=== PATIENT | female | born 1990 | race Two or more races ===

== ENCOUNTER 2024-12-25 10:22 | Outpatient (AMB) | payer MEDICAID, SELFPAY ==
--- NOTE | 2024-12-25 10:36 | AMB.OBINITIA ---
Vital Signs 12/25/24 10:37 Weight 101.264 kg Weight Measurement Method Standing Scale BP 114/72 Blood Pressure Source Automatic Cuff Blood Pressure Location Left Upper Arm Position Sitting Respiration 18 Pulse 90 Pulse Source Monitor Temp 97.2 F Temp Source Oral Pulse Oximetry (%) 98 Oxygen Delivery Method Room Air Allergies/Home Meds Allergies & Medications Allergies No Known Allergies Allergy (Verified 12/25/24 10:39) Medication Reconciliation No Known Home Medications 12/25/24 [History Confirmed 12/25/24] Intake Visit Data Collection New Patient or Established: New Patient (never been to [facility]) Reason for Visit:: OBI TRANSFER Seen by Clinical Staff ONLY (RN/MA): No Chemistry Quality Control Analyst Required: No Do You Feel Safe at Home: Yes Authorities Contacted: N/A PCP or OBGYN visit in last 3 months: Yes Hx Now: Yes Are you currently on any form of Control: No Last menstrual period: 05/17/24 Pain Present Currently: No Pain Scale Used: Gonsalves-Betancourt/Numerical Pain scale:: 0 Smoking Status Smoking Status: Never smoker Questionnaires Covid-19 Vaccine Questionnaire Has patient been vacinated for Covid-19 Have you been vacinated for Covid-19: Yes PHQ-9 PHQ-2 Over the last 2 weeks, how often have you been bothered by any of the following problems? 1. Little interest or pleasure in doing things: not at all 2. Feeling down, depressed, or hopeless: not at all Total score: 0 PHQ-9 3. Trouble falling or staying asleep, or sleeping too much: Not at all 4. Feeling tired or having little energy: Not at all 5. Poor appetite or overeating: Not at all 6. Feeling bad about yourself - or that you are a failure or have let yourself or your family down: Not at all 7. Trouble concentrating on things, such as reading the newspaper or watching television: Not at all 8. Moving or speaking so slowly that other people could have noticed? - Or the opposite - being so fidgety or restless that you have been moving around a lot more than usual: not at all 9. Thoughts that you would be better off or of hurting yourself in some way: Not at all Total score: 0 If you checked off any problems, how difficult have these problems made it for you to do your work, take care of things at home, or get along with other people?: not difficult at all Source: Developed by Drs. Mark Mcgee, Lora Reddy, Clyde Lopez and colleagues, with an educational rosa from [employer]. Depression screen completed yes Social History Living Situation History Marital Status: Single Lives With: Family Housing: House Tobacco History Smoking Status: Never smoker Second Hand Smoke Exposure: No Alcohol History Alcohol Intake: Never Domestic Abuse History Do You Feel Safe at Home: Yes History of Present Illness HPI Narrative 34-year-old 3 para 2 for OBI. Patient is a transfer from [facility]. Her labs. May 17, 2024. An estimated due date February 21, 2025. First ultrasound was 16 weeks August 30. And this made EDC 02/11/2025 patient also had a 26 growth ultrasound October 30 and this had an EDC of February 05, 2025 Dr Fowler has been going by the February 21, 2025 EDC. Patient's first visit was in the first trimester. She has a history of 2 C-sections. Patient has been managed for GDM with the . Her 1 hour was elevated and her 3-hour elevated also A1c has been 5.4. Patient is checking her sugars 4 times a day and is compliant with metformin and GDM diet. Patient is O+, antibody screen negative, RPR nonreactive, rubella immune, hepatitis B negative, hepatitis C negative, HIV negative, GC and Chlamydia were negative. And NIPT AFP and carrier screens all negative. Patient has a history of hep A. Reports movement. Denies contractions OB Initial Visit OB Flowsheet OB Flowsheet Initial Weight: Not Recorded Date <del>?</del> EGA Weight BP Alb Glu CTX Pres Fundal ht FHR Mov Dilation Station Effacement Hx Notes Visit Note 12/25/24 <del>?</del> 31w 5d 101.264 kg 114/72 absent unknown 32 146 active 34-year-old 3 para 2. x 2. GDM with this . Patient reports compliance with GDM diet and she is taking metformin 500 twice daily. I reviewed sugar log and patient's sugars are at goal 100%. Patient reports movement. Denies labor contractions. Denies leaking or bleeding. Tdap today. Increase fluids. Continue prenatals and iron. Increase fluids and walk twice a day reviewed labs and chart with patient today. Continue GDM diet. Continue to log blood sugars 4 times a day. Schedule patient with maternal- medicine for consult and scan. Tdap today. Increase fluids. Continue prenatals and iron. Increase fluids and walk twice a day reviewed labs and chart with patient today. Continue GDM diet. Continue to log blood sugars 4 times a day. Schedule patient with maternal- medicine for consult and scan. start week NST/BPP ordered Menstrual History Menstrual reliability: definite Flow: normal Menstrual regularity: regular Monthly: Yes Age at menarche: 12 On control pills at conception: No OB History : 3 Para: 2 Hx # Pregnancies: 0 Hx Total # of Abortions (Spontaneous & Elective): 0 # of Living Children: 2 Delivery History 1st : date: 03/23/14 sex: male Delivery type: History of depression before or after : No 2nd : date: 05/26/20 sex: male Delivery type: History of depression before or after : No Infection History & Risk Evaluation History of STDs: none HIV risk evaluation: low risk Hepatitis B risk evaluation: low risk Patient or partner has history of Genital Herpes: No Varicella/chicken pox status: immunized Genetic Screening & History Genetic Screening/Teratology Counseling - Includes patient, baby's father, or anyone in either family with: 1. Patient's age 35 years or older as of estimated date of delivery: Yes 2. Thalassemia (Marshallese, Cymraes, Mediterranean, or Background); MCV less than 80: No 3. Neural Tube Defect (Meningomyelocele, Spina Bifida, or Anencephaly): No 4. Congenital Heart Defect: No 5. Down Syndrome: No 6. Rishabh-Sachs (Ashkenazi Faith, Cajun, Italian [place]): No 7. Kervin Disease (Ashkenazi Faith): No 8. Familial Dysautonomia (Ashkenazi Faith): No 9. Sickle Cell Disease or Trait (): No 10. Hemophilia or other blood disorders: No 11. Muscular Dystrophy: No 12. Cystic Fibrosis: No 13. Scioto's Chorea: No 14. Mental Retardation/Autism: No 15. Other inherited genetic or chromosomal disorder: No 16. Maternal Metabolic Disorder (EG,TYPE 1 Diabetes, PKU): No 17. Patient or baby's father had a child with defects not listed above: No 18. Recurrent loss or a stillbirth: No 19. Medications (including supplements, vitamins, herbs or otc drugs)/illicit/recreational drugs/alcohol since last menstrual period: No 20. Any other: No Infection History 1. Live with someone with TB or exposed to TB: No 2. Rash or viral illness since last menstrual period: No 3. Hepatitis B,C: No Other (see comments) Source: [employer] Review of Systems Review of Systems Systems Reviewed: All systems reviewed, normal except as documented Exam General Limitations: no limitations General Appearance: alert, in no apparent distress, comfortable, cooperative, healthy appearing, well developed and well groomed Head Head exam: atraumatic, normocephalic and normal inspection Resp Respiratory exam: Present normal lung sounds bilaterally Card Cardiovascular exam: Present regular rate, normal rhythm and normal heart sounds Abdominal Abdominal exam: Present soft and normal bowel sounds Psych Psychiatric exam: Present normal affect and normal mood Office Procedures OB Clinic LOC & Office Proc's Nursing/Assessment Patient Status: Initial/New Patient OB Clinic Nursing Assessment: Medication Reconciliation, Update PMH in EMR and Vital Signs OB Clinic Coordination of Care: Education Complex Pt/Fam, Consent,records obtained, informed consent, Lab and Imaging orders and Staff clarify orders Special Needs: Heart tones New Patient Charge New Patient Point Assignment: [id number] New Patient Point Charge: CONSTRUCTION PROJECT ASSISTANT Level 3 ([id number]) Injection/Vaccine Admin Admin 1st Vaccine: Yes Immunizations diphth,pertus(acell),tetanus 2.5 Lf unit-8 mcg-5 Lf/0.5mL IM syringe Performing Provider: Lindy Muniz CNM Performing Location: [facility] Administered by: Brigid Clark MA on 12/25/24 11:17 Dose Route Admin Location Dispensed Lot Number Expiration Date [facility] [employer] 0.5 mL IM Left Deltoid 0.5 mL [id number] 03/12/27 97041-119-74 [employer] VIS Given Date VIS Provided VIS Publication Date 12/25/24 Single Vaccine 24 Eligibility Eligibility Date Funding Source Public Non-[facility] Assessment & Plan Diagnosis / Problem List (1) Encounter for supervision of high risk in third trimester, antepartum: Status: Acute (2) Diet controlled gestational diabetes mellitus (GDM), antepartum: Status: Acute (3) Advanced maternal age (AMA) in : Status: Acute (4) Previous delivery affecting , antepartum: Status: Acute Plan Continue GDM diet and glucose monitoring 4 times a day. Continue metformin 500 mg twice daily. Discussed labor precautions. Hydrate. Continue vitamin and iron. Schedule patient with maternal- medicine for anatomy scan. Follow-up with OB in 2 weeks for OB check, start weekly NST/BPP Additional Plan Follow Up: 2 Weeks (obc/GDM)
[2024-12-25 10:37] VITALS: BP 114/72; PULSE 90; RESP 18; TEMP 36.2; O2SAT 98
== END 2024-12-25 11:16 | disposition home or self-care (01) ==
LOC: HODSOBC 10:22
PROVIDERS: Supervising Provider Advanced Practice Midwife; Visit Provider Advanced Practice Midwife
DX: O09.523 Supervision of elderly multigravida, third trimester (principal); O09.293 Supervision of pregnancy with other poor reproductive or obstetric history, third trimester; O34.219 Maternal care for unspecified type scar from previous cesarean delivery; O09.893 Supervision of other high risk pregnancies, third trimester; O24.415 Gestational diabetes mellitus in pregnancy, controlled by oral hypoglycemic drugs; Z3A.31 31 weeks gestation of pregnancy; Z23 Encounter for immunization
CPT/HCPCS: 90471; 90715; 99203; G0463

== ENCOUNTER 2025-01-10 14:46 | Outpatient (AMB) | payer MEDICAID, SELFPAY ==
[2025-01-10 14:59] VITALS: BP 101/68; PULSE 87; RESP 17; TEMP 36.4; O2SAT 98
--- NOTE | 2025-01-10 14:59 | OBCLNT_ITS ---
Vital Signs 01/10/25 14:59 Weight 101.321 kg Weight Measurement Method Standing Scale BP 101/68 Blood Pressure Source Automatic Cuff Blood Pressure Location Right Upper Arm Position Sitting Respiration 17 Pulse 87 Pulse Source Monitor Temp 97.5 F Temp Source Temporal Artery Scan Pulse Oximetry (%) 98 Oxygen Delivery Method Room Air Allergies/Home Meds Allergies & Medications Allergies No Known Allergies Allergy (Verified 01/10/25 15:01) Intake Visit Data Collection New Patient or Established: Established Patient (seen at [facility] within 3 years) Reason for Visit:: OBC Seen by Clinical Staff ONLY (RN/MA): No Community Planning Technician Required: Yes Do You Feel Safe at Home: Yes Authorities Contacted: N/A PCP or OBGYN visit in last 3 months: Yes Date of Last PCP or OBGYN visit: 01/08/25 Hx Now: Yes Are you currently on any form of Control: No Pain Present Currently: No Pain Scale Used: Gonsalves-Betancourt/Numerical Pain scale:: 0 Smoking Status Smoking Status: Never smoker Questionnaires Covid-19 Vaccine Questionnaire Has patient been vacinated for Covid-19 Have you been vacinated for Covid-19: Yes PHQ-9 PHQ-2 Over the last 2 weeks, how often have you been bothered by any of the following problems? 1. Little interest or pleasure in doing things: not at all 2. Feeling down, depressed, or hopeless: not at all Total score: 0 PHQ-9 3. Trouble falling or staying asleep, or sleeping too much: Not at all 4. Feeling tired or having little energy: Not at all 5. Poor appetite or overeating: Not at all 6. Feeling bad about yourself - or that you are a failure or have let yourself or your family down: Not at all 7. Trouble concentrating on things, such as reading the newspaper or watching television: Not at all 8. Moving or speaking so slowly that other people could have noticed? - Or the opposite - being so fidgety or restless that you have been moving around a lot more than usual: not at all 9. Thoughts that you would be better off or of hurting yourself in some way: Not at all Total score: 0 If you checked off any problems, how difficult have these problems made it for you to do your work, take care of things at home, or get along with other people?: not difficult at all Source: Developed by Drs. Mark Mcgee, Lora Reddy, Clyde Lopez and colleagues, with an educational rosa from [employer]. Depression screen completed yes Social History Living Situation History Marital Status: Lives With: Family Housing: House Tobacco History Smoking Status: Never smoker Second Hand Smoke Exposure: No Alcohol History Alcohol Intake: Never Domestic Abuse History Do You Feel Safe at Home: Yes History of Present Illness HPI Narrative Giselle Diaz, , presents for routine visit at 35 weeks and 3 days gestation. Patient has a history of 2 previous sections. No contractions, LOF, VB and reports good FM. Denies SINCLAIR, VC, and epigastric pain. - Giselle Diaz is a 35-year-old presenting for routine visit at 35 weeks and 3 days gestation. - Estimated due date revised to February 11, 2025, based on ultrasound findings. - has been uncomplicated thus far. - Risk factors identified: - Advanced maternal age - History of 2 previous sections - Gestational diabetes - Patient is taking metformin 500mg BID for gestational diabetes management. - Blood sugar logs reviewed, numbers reported as pretty good and within control - Patient received Tdap vaccine at last visit. - No reported concerns or new symptoms during this visit. Review of Systems Review of Systems Systems Reviewed: All systems reviewed, normal except as documented Care OB Visit Log OB Flowsheet Initial Weight: Not Recorded Date -?-?-?-?-?--?-?-?-?-?-?-?- EGA Weight BP Alb Glu CTX Pres Fundal ht FHR Mov Dilation Station Effacement Hx Notes Visit Note 12/25/24 -?-?-?-?-?-?-?-?-?-?-?-?- 33w 1d 101.264 kg 114/72 absent unknown 32 146 active 34-year-old 3 para 2. x 2. GDM with this . Patient reports compliance with GDM diet and she is taking metformin 500 twice daily. I reviewed sugar log and patient's sugars are at goal 100%. Patient reports movement. Denies labor contractions. Denies leaking or bleeding. Tdap today. Increase fluids. Continue prenatals and iron. Increase fluids and walk twice a day reviewed labs and chart with patient today. Continue GDM diet. Continue to log blood sugars 4 times a day. Schedule patient with maternal- medicine for consult and scan. Tdap today. Increase fluids . Continue prenatals and iron. Increase fluids and walk twice a day reviewed labs and chart with patient today. Continue GDM diet. Continue to log blood sugars 4 times a day. Schedule patient with maternal- medicine for consult and scan. start week NST/BPP ordered 01/10/25 -?-?-?-?-?-?-?-?-?-?-?-?- 35w 3d 101.321 kg 101/68 34 157 active No complaints, reports good movement. heart rate 157 bpm. Plan is to schedule around 01/28, ultrasound to be done next week, continue metformin 500mg twice daily, monitor blood glucose levels, follow up in 1 week, and address umbilical hernia after delivery. [facility] Calculator Estimated Delivery Date Method Current WG Current Estimate 02/11/25 Ultrasound #1 35w 4d Other Estimates 02/21/25 LMP (Certain) 34w 1d 02/05/25 Ultrasound #2 36w 3d Specific Issue/Plans Laboratory, Imaging, and Diagnostic Test Results - Date: 08/02/2024 - Blood group: O-positive - Rubella: Immune - RPR: Non-reactive - Hepatitis B: Negative - HIV: Negative - Gonorrhea: Negative - Chlamydia: Negative - One-hour glucose: 175 - Hemoglobin A1c: 5.4 - Cystic fibrosis screening: Negative - NIPT: Negative - Ultrasound (08/30/2024): Gestational age 16 weeks and 3 days, [facility] 02/11/2025 - Ultrasound (10/30/2024): Gestational age 26 weeks, [facility] 02/05/2025 Notes Visit Date: 12/25/24 Last Updated by: Lindy Muniz, SHIRA 34 yo . C/Sx2, lmp: 05/17/24. EDC 02/21/25. sono 08/30/24: 16w3. EDC: 02/11/25. 2n sono: 10/30/24: 26w. EDC 02/05/25. 1hr gtt: 175, 3 hr gtt abnormal. O+,abs-, rpr;;nr, rub imm, hbsag-,hiv-,HC-, GC/CT-, NIPT/AFP and carrier screen- Exam General General Appearance: alert, in no apparent distress and healthy appearing Head Head exam: atraumatic Neck Neck exam: Present normal inspection and trachea midline Chest Chest inspection: Present normal inspection and symmetric chest wall rise External exam: Present normal external exam; Absent tenderness Neuro Neurological exam: Present oriented X3 Psych Psychiatric exam: Present normal affect and normal mood Office Procedures OB Clinic LOC & Office Proc's Nursing/Assessment Patient Status: Established Patient OB Clinic Nursing Assessment: Medication Reconciliation, Update PMH in EMR and Vital Signs OB Clinic Coordination of Care: Complex Care and Chronic Disease 1-5, Education Complex Pt/Fam, Consent,records obtained, informed consent and Staff clarify orders Special Needs: Heart tones Established Patient Charge Established Patient Point Assignment: 120 Established Patient Point Charge: EP Level 4 (120-155) Assessment & Plan Diagnosis / Problem List (1) Previous delivery affecting , antepartum: Status: Acute (2) Diet controlled gestational diabetes mellitus (GDM), antepartum: Status: Acute (3) Encounter for supervision of high risk in third trimester, antepartum: Status: Acute (4) Advanced maternal age (AMA) in : Status: Acute Plan Problem List - , 35 weeks and 3 days gestation - Advanced maternal age - Gestational diabetes mellitus - History of two previous sections - Umbilical hernia Assessment 34-year-old at 35 weeks 3 days gestation ([facility] 02/11/2025 based on 16-week ultrasound) with gestational diabetes mellitus, controlled on metformin 500mg BID. She has advanced maternal age and history of two previous sections. heart rate auscultated at 157 bpm with good movement. Patient's blood glucose logs indicate good glycemic control. Incidental finding of a small hernia noted on physical exam. All labs and genetic scre enings completed and within normal limits. Plan - Schedule for around January 28-2024 (2 weeks before due date of February 11, 2025) - Book hospital date for - Schedule ultrasound for next week - Continue metformin 500mg twice daily - Continue monitoring blood glucose levels - Follow-up appointment scheduled for next week - Prescribe vitamins and metformin - Prescribe diabetic supplies - Plan to address hernia repair after 1. Progress Reviewed gestational age, growth, and heart rate. Planned frequent visits (every 2 weeks until 36 weeks, then weekly). 2. Instructed patient to monitor movements and report decreases immediately. 3. Testing Counseled on routine third-trimester labs per guidelines. Discussed potential need for ultrasound or monitoring based on risk factors. 4. Preeclampsia Precaution Educated on preeclampsia signs: severe headache, vision changes, right upper quadrant pain, sudden swelling. Advised urgent reporting of symptoms and discussed blood pressure monitoring if high risk. 5. Labor Precautions Reviewed labor signs: regular contractions, pelvic pressure, back pain, bleeding, or fluid leakage. Instructed to seek immediate care for these symptoms. 6. Lifestyle and Delivery Preparation Reinforced vitamins, nutrition, and safe activity. Discussed plan, pain management, and . Advised on labor preparation (e.g., hospital bag) and expectations. 7. Psychosocial Support Assessed emotional well-being and offered resources for mental health or parenting support.
== END 2025-01-10 15:47 | disposition home or self-care (01) ==
PROVIDERS: Supervising Provider Obstetrics & Gynecology; Visit Provider Obstetrics & Gynecology
DX: O09.523 Supervision of elderly multigravida, third trimester (principal); O09.293 Supervision of pregnancy with other poor reproductive or obstetric history, third trimester; O34.219 Maternal care for unspecified type scar from previous cesarean delivery; O09.893 Supervision of other high risk pregnancies, third trimester; O24.415 Gestational diabetes mellitus in pregnancy, controlled by oral hypoglycemic drugs; O99.613 Diseases of the digestive system complicating pregnancy, third trimester; K42.9 Umbilical hernia without obstruction or gangrene; Z3A.35 35 weeks gestation of pregnancy
CPT/HCPCS: 99214; G0463

== ENCOUNTER 2025-01-14 14:46 | Outpatient (AMB) | payer MEDICAID, SELFPAY ==
[2025-01-14 15:19] VITALS: BP 100/68; PULSE 88; RESP 17; TEMP 36.2; O2SAT 98
--- NOTE | 2025-01-14 15:19 | AMB.OBVISIT ---
Vital Signs 01/14/25 15:19 Weight 101.831 kg Weight Measurement Method Standing Scale BP 100/68 Blood Pressure Source Automatic Cuff Blood Pressure Location Right Upper Arm Position Sitting Respiration 17 Pulse 88 Pulse Source Monitor Temp 97.2 F Temp Source Temporal Artery Scan Pulse Oximetry (%) 98 Oxygen Delivery Method Room Air Allergies/Home Meds Allergies & Medications Allergies No Known Allergies Allergy (Verified 01/25/25 21:10) Intake Visit Data Collection New Patient or Established: Established Patient (seen at [facility] within 3 years) Reason for Visit:: OBC Magisterial District Judge Required: Yes Magisterial District Judge's name/title: RONI KIMBROUGH Do You Feel Safe at Home: Yes Authorities Contacted: N/A PCP or OBGYN visit in last 3 months: Yes Date of Last PCP or OBGYN visit: 01/10/25 Hx Now: Yes Are you currently on any form of Control: No Pain Scale Used: Gonsalves-Betancourt/Numerical Pain scale:: 0 Smoking Status Smoking Status: Never smoker Questionnaires Covid-19 Vaccine Questionnaire Has patient been vacinated for Covid-19 Have you been vacinated for Covid-19: Yes PHQ-9 PHQ-2 Over the last 2 weeks, how often have you been bothered by any of the following problems? 1. Little interest or pleasure in doing things: not at all 2. Feeling down, depressed, or hopeless: not at all Total score: 0 PHQ-9 3. Trouble falling or staying asleep, or sleeping too much: Not at all 4. Feeling tired or having little energy: Not at all 5. Poor appetite or overeating: Not at all 6. Feeling bad about yourself - or that you are a failure or have let yourself or your family down: Not at all 7. Trouble concentrating on things, such as reading the newspaper or watching television: Not at all 8. Moving or speaking so slowly that other people could have noticed? - Or the opposite - being so fidgety or restless that you have been moving around a lot more than usual: not at all 9. Thoughts that you would be better off or of hurting yourself in some way: Not at all Total score: 0 If you checked off any problems, how difficult have these problems made it for you to do your work, take care of things at home, or get along with other people?: not difficult at all Source: Developed by Drs. Mark Mcgee, Lora Reddy, Clyde Lopez and colleagues, with an educational rosa from [employer]. Depression screen completed yes Social History Living Situation History Lives With: Family Housing: House Tobacco History Smoking Status: Never smoker Second Hand Smoke Exposure: No Alcohol History Alcohol Intake: Never Domestic Abuse History Do You Feel Safe at Home: Yes Care OB Visit Log OB Flowsheet Initial Weight: Not Recorded Date <del>?</del> EGA Weight BP Alb Glu CTX Pres Fundal ht FHR Mov Dilation Station Effacement Hx Notes Visit Note 12/25/24 <del>?</del> 33w 1d 101.264 kg 114/72 absent unknown 32 146 active 34-year-old 3 para 2. x 2. GDM with this . Patient reports compliance with GDM diet and she is taking metformin 500 twice daily. I reviewed sugar log and patient's sugars are at goal 100%. Patient reports movement. Denies labor contractions. Denies leaking or bleeding. Tdap today. Increase fluids. Continue prenatals and iron. Increase fluids and walk twice a day reviewed labs and chart with patient today. Continue GDM diet. Continue to log blood sugars 4 times a day. Schedule patient with maternal- medicine for consult and scan. Tdap today. Increase fluids. Continue prenatals and iron. Increase fluids and walk twice a day reviewed labs and chart with patient today. Continue GDM diet. Continue to log blood sugars 4 times a day. Schedule patient with maternal- medicine for consult and scan. start week NST/BPP ordered 01/10/25 <del>?</del> 35w 3d 101.321 kg 101/68 34 157 active No complaints, reports good movement. heart rate 157 bpm. Plan is to schedule around 01/28, ultrasound to be done next week, continue metformin 500mg twice daily, monitor blood glucose levels, follow up in 1 week, and address umbilical hernia after delivery. 01/14/25 <del>?</del> 36w 0d 101.831 kg 100/68 occasional unknown 36 155 active , at 36 weeks gestation presenting for routine care.Gestational diabetes, managed with metformin 500mg BID - Two previous sections - Advanced maternal age - Scheduled for repeat section on January 31, 2025 Plan - Repeat scheduled for January 31, 2025 - Continue metformin 500mg BID for gestational diabetes - Return for follow-up appointment in one week - Monitor movement and report if contractions become painful or occur every 5 minutes - Continue checking blood sugar levels, report if readings exceed 150 - Arrive at hospital at 10:00 AM on the day of scheduled 01/21/25 <del>?</del> 37w 0d 102.569 kg 120/72 occasional cephalic 37 145 active No CTX/LOF/VB, reports good FM. FHR 140. GDM on metformin with reviewed logs: fasting 78?94, 1hr PP mostly 108 with one 134. Reports occasional painless uterine tightening. Repeat scheduled for 01/31. Plan: stop glucose logs, continue metformin/diet, NPO after midnight before surgery (including meds), check in 10 AM on 01/31. Return if CTX q5min, LOF, VB, or ?FM. JAI Calculator Estimated Delivery Date Method Current WG Current Estimate 02/11/25 Ultrasound #1 40w 0d Other Estimates 02/21/25 LMP (Certain) 38w 4d 02/05/25 Ultrasound #2 40w 6d Specific Issue/Plans Laboratory, Imaging, and Diagnostic Test Results - Date: 08/02/2024 - Blood group: O-positive - Rubella: Immune - RPR: Non-reactive - Hepatitis B: Negative - HIV: Negative - Gonorrhea: Negative - Chlamydia: Negative - One-hour glucose: 175 - Hemoglobin A1c: 5.4 - Cystic fibrosis screening: Negative - NIPT: Negative - Ultrasound (08/30/2024): Gestational age 16 weeks and 3 days, JAI 02/11/2025 - Ultrasound (10/30/2024): Gestational age 26 weeks, JAI 02/05/2025 Notes Visit Date: 12/25/24 Last Updated by: Lindy Muniz CNM 34 yo . C/Sx2, lmp: 05/17/24. EDC 8/7/25. sono 08/30/24: 16w3. EDC: 02/11/25. 2n sono: 10/30/24: 26w. EDC 02/05/25. 1hr gtt: 175, 3 hr gtt abnormal. O+,abs-, rpr;;nr, rub imm, hbsag-,hiv-,HC-, GC/CT-, NIPT/AFP and carrier screen- Office Procedures OB Clinic LOC & Office Proc's Nursing/Assessment Patient Status: Established Patient OB Clinic Nursing Assessment: Medication Reconciliation, Update PMH in EMR and Vital Signs OB Clinic Coordination of Care: Complex Care and Chronic Disease 1-5, Consent,records obtained, informed consent, Lab and Imaging orders and Staff clarify orders Special Needs: Heart tones Established Patient Charge Established Patient Point Assignment: 115 Established Patient Point Charge: EP Level 3 (80-115) Assessment & Plan Diagnosis / Problem List (1) Previous delivery affecting , antepartum: Status: Acute (2) Diet controlled gestational diabetes mellitus (GDM), antepartum: Status: Acute (3) Advanced maternal age (AMA) in : Status: Acute
== END 2025-01-14 15:36 | disposition home or self-care (01) ==
PROVIDERS: PCP Obstetrics & Gynecology; Referring Provider Obstetrics & Gynecology; Supervising Provider Obstetrics & Gynecology; Visit Provider Obstetrics & Gynecology
DX: O09.523 Supervision of elderly multigravida, third trimester (principal); O09.293 Supervision of pregnancy with other poor reproductive or obstetric history, third trimester; O34.219 Maternal care for unspecified type scar from previous cesarean delivery; O09.893 Supervision of other high risk pregnancies, third trimester; O24.415 Gestational diabetes mellitus in pregnancy, controlled by oral hypoglycemic drugs; Z3A.36 36 weeks gestation of pregnancy
CPT/HCPCS: 99213; G0463

== ENCOUNTER 2025-01-21 08:17 | Outpatient (AMB) | payer MEDICAID, SELFPAY ==
[2025-01-21 08:35] VITALS: BP 120/72; PULSE 79; RESP 18; TEMP 36.4; O2SAT 98
--- NOTE | 2025-01-21 08:35 | AMB.OBVISIT ---
Vital Signs 01/21/25 08:35 Weight 102.569 kg Weight Measurement Method Standing Scale BP 120/72 Blood Pressure Source Automatic Cuff Blood Pressure Location Right Upper Arm Position Sitting Respiration 18 Pulse 79 Pulse Source Monitor Temp 97.6 F Temp Source Temporal Artery Scan Pulse Oximetry (%) 98 Oxygen Delivery Method Room Air Allergies/Home Meds Allergies & Medications Allergies No Known Allergies Allergy (Verified 01/21/25 08:37) Intake Visit Data Collection New Patient or Established: Established Patient (seen at [facility] within 3 years) Reason for Visit:: OBC Consent obtained for Telemed Visit: No Seen by Clinical Staff ONLY (RN/MA): No Child And Family Therapist Required: Yes Do You Feel Safe at Home: Yes Authorities Contacted: N/A PCP or OBGYN visit in last 3 months: Yes Date of Last PCP or OBGYN visit: 01/15/25 Hx Now: Yes Are you currently on any form of Control: No Pain Present Currently: No Pain Scale Used: Gonsalves-Betancourt/Numerical Pain scale:: 0 Smoking Status Smoking Status: Never smoker Questionnaires Covid-19 Vaccine Questionnaire Has patient been vacinated for Covid-19 Have you been vacinated for Covid-19: Yes PHQ-9 PHQ-2 Over the last 2 weeks, how often have you been bothered by any of the following problems? 1. Little interest or pleasure in doing things: not at all PHQ-9 8. Moving or speaking so slowly that other people could have noticed? - Or the opposite - being so fidgety or restless that you have been moving around a lot more than usual: not at all Source: Developed by Drs. Mark Mcgee, Lora Reddy, Clyde Lopez and colleagues, with an educational rosa from [employer]. Social History Living Situation History Lives With: Family Housing: House Tobacco History Smoking Status: Never smoker Second Hand Smoke Exposure: No Alcohol History Alcohol Intake: Never Domestic Abuse History Do You Feel Safe at Home: Yes History of Present Illness HPI Narrative Giselle Diaz, , presents for routine visit at 37 weeks gestation. Patient has a history of 2 prior deliveries. Patient reports no contractions, but stomach tightens up without pain. Reports good movement. No mention of leakage of fluid or vaginal bleeding. Denies [place], VC, and epigastric pain. - Giselle Diaz is a 35-year-old female at 37 weeks gestation presenting for care. - Patient has gestational diabetes mellitus (GDM) managed with metformin. - History of 2 previous C-sections. - Repeat scheduled for January 31, 2025 (10 days from now). - Patient provided glucose logs: - Fasting glucose between 78 to 94 mg/dL - One-hour postprandial glucose mostly around 108 mg/dL - One outlier of 134 mg/dL after lunch - Reports active movement - Experiences occasional uterine tightening without pain - Denies regular contractions Care OB Visit Log OB Flowsheet Initial Weight: Not Recorded Date <del>?</del> EGA Weight BP Alb Glu CTX Pres Fundal ht FHR Mov Dilation Station Effacement Hx Notes Visit Note 12/25/24 <del>?</del> 33w 1d 101.264 kg 114/72 absent unknown 32 146 active 34-year-old 3 para 2. x 2. GDM with this . Patient reports compliance with GDM diet and she is taking metformin 500 twice daily. I reviewed sugar log and patient's sugars are at goal 100%. Patient reports movement. Denies labor contractions. Denies leaking or bleeding. Tdap today. Increase fluids. Continue prenatals and iron. Increase fluids and walk twice a day reviewed labs and chart with patient today. Continue GDM diet. Continue to log blood sugars 4 times a day. Schedule patient with maternal- medicine for consult and scan. Tdap today. Increase fluids. Continue prenatals and iron. Increase fluids and walk twice a day reviewed labs and chart with patient today. Continue GDM diet. Continue to log blood sugars 4 times a day. Schedule patient with maternal- medicine for consult and scan. start week NST/BPP ordered 01/10/25 <del>?</del> 35w 3d 101.321 kg 101/68 34 157 active No complaints, reports good movement. heart rate 157 bpm. Plan is to schedule around 01/28, ultrasound to be done next week, continue metformin 500mg twice daily, monitor blood glucose levels, follow up in 1 week, and address umbilical hernia after delivery. 01/21/25 <del>?</del> 37w 0d 102.569 kg 120/72 occasional cephalic 37 145 active No CTX/LOF/VB, reports good FM. FHR 140. GDM on metformin with reviewed logs: fasting 78?94, 1hr PP mostly 108 with one 134. Reports occasional painless uterine tightening. Repeat scheduled for 01/31. Plan: stop glucose logs, continue metformin/diet, NPO after midnight before surgery (including meds), check in 10 AM on 01/31. Return if CTX q5min, LOF, VB, or ?FM. JAI Calculator Estimated Delivery Date Method Current WG Current Estimate 02/11/25 Ultrasound #1 37w 0d Other Estimates 02/21/25 LMP (Certain) 35w 4d 02/05/25 Ultrasound #2 37w 6d Specific Issue/Plans Laboratory, Imaging, and Diagnostic Test Results - Date: 08/02/2024 - Blood group: O-positive - Rubella: Immune - RPR: Non-reactive - Hepatitis B: Negative - HIV: Negative - Gonorrhea: Negative - Chlamydia: Negative - One-hour glucose: 175 - Hemoglobin A1c: 5.4 - Cystic fibrosis screening: Negative - NIPT: Negative - Ultrasound (08/30/2024): Gestational age 16 weeks and 3 days, JAI 02/11/2025 - Ultrasound (10/30/2024): Gestational age 26 weeks, JAI 02/05/2025 Notes Visit Date: 12/25/24 Last Updated by: Lindy Muniz, CN 34 yo . C/Sx2, lmp: 05/17/24. EDC 02/21/25. sono 08/30/24: 16w3. EDC: 02/11/25. 2n sono: 10/30/24: 26w. EDC 02/05/25. 1hr gtt: 175, 3 hr gtt abnormal. O+,abs-, rpr;;nr, rub imm, hbsag-,hiv-,HC-, GC/CT-, NIPT/AFP and carrier screen- Exam General General Appearance: alert, in no apparent distress and healthy appearing Head Head exam: atraumatic Neck Neck exam: Present normal inspection and trachea midline Chest Chest inspection: Present normal inspection and symmetric chest wall rise External exam: Present normal external exam; Absent tenderness Neuro Neurological exam: Present oriented X3 Psych Psychiatric exam: Present normal affect and normal mood Office Procedures OB Clinic LOC & Office Proc's Nursing/Assessment Patient Status: Established Patient OB Clinic Nursing Assessment: Medication Reconciliation, Update PMH in EMR and Vital Signs OB Clinic Coordination of Care: Complex Care/Chronic Disease 5 or more, 4+ Authorizations needed, Lab and Imaging orders, Results/Orders obtained and Staff clarify orders Special Needs: Heart tones Established Patient Charge Established Patient Point Assignment: 150 Established Patient Point Charge: EP Level 4 (120-155) Assessment & Plan Diagnosis / Problem List (1) Previous delivery affecting , antepartum: Status: Acute (2) Diet controlled gestational diabetes mellitus (GDM), antepartum: Status: Acute (3) Encounter for supervision of high risk in third trimester, antepartum: Status: Acute Plan Problem List - Gestational diabetes mellitus - , third trimester - History of section Assessment 35-year-old at 37 weeks gestation with gestational diabetes mellitus (GDM) managed with metformin. History of two previous sections. Glucose logs reviewed, showing fasting glucose between 78-94 mg/dL and one-hour postprandial glucose mostly around 108 mg/dL, with one outlier of 134 mg/dL after lunch. Patient reports movement and uterine tightening without pain. heart rate auscultated at 140 bpm, which is within normal range. Repeat section scheduled for January 31, 2025, in 10 days. Plan - Discontinue glucose monitoring - Continue current metformin regimen and diet - Scheduled on January 31, 2025 - Patient to check in at 10:00 AM on the day of - Nothing by mouth (NPO) after midnight the night before , including medications - Monitor for frequent contractions (every 5 minutes) and seek immediate medical attention if they occur 1. Progress Reviewed gestational age, growth, and heart rate. Planned frequent visits (every 2 weeks until 36 weeks, then weekly). 2. Instructed patient to monitor movements and report decreases immediately. 3. Testing Counseled on routine third-trimester labs per guidelines. Discussed potential need for ultrasound or monitoring based on risk factors. 4. Preeclampsia Precaution Educated on preeclampsia signs: severe headache, vision changes, right upper quadrant pain, sudden swelling. Advised urgent reporting of symptoms and discussed blood pressure monitoring if high risk. 5. Labor Precautions Reviewed labor signs: regular contractions, pelvic pressure, back pain, bleeding, or fluid leakage. Instructed to seek immediate care for these symptoms. 6. Lifestyle and Delivery Preparation Reinforced vitamins, nutrition, and safe activity. Discussed plan, pain management, and . Advised on labor preparation (e.g., hospital bag) and expectations. 7. Psychosocial Support Assessed emotional well-being and offered resources for mental health or parenting support.
== END 2025-01-21 08:47 | disposition home or self-care (01) ==
LOC: HODSOBC 08:17
PROVIDERS: Supervising Provider Obstetrics & Gynecology; Visit Provider Obstetrics & Gynecology
DX: O09.523 Supervision of elderly multigravida, third trimester (principal); O09.293 Supervision of pregnancy with other poor reproductive or obstetric history, third trimester; O34.219 Maternal care for unspecified type scar from previous cesarean delivery; O09.893 Supervision of other high risk pregnancies, third trimester; O24.415 Gestational diabetes mellitus in pregnancy, controlled by oral hypoglycemic drugs; Z3A.37 37 weeks gestation of pregnancy
CPT/HCPCS: 99214; G0463

== ENCOUNTER 2025-01-25 18:54 | Outpatient (CLI) | payer MEDICAID, SELFPAY ==
[2025-01-25 19:02] VITALS: BP 112/57; PULSE 88; RESP 100; RESP 16; TEMP 36.8
[2025-01-25 19:05] VITALS: BMI 39.8
--- NOTE | 2025-01-25 19:17 | XR_ITS ---
Examination: Biophysical profile, ultrasound Date and time of exam: January 25, 2025 1946 hours INDICATIONS: Diagnosis gestational diabetes, amniotic fluid index 7.7 cm on ultrasound January 22, 2025 Technique: Multiple transabdominal sonographic images of the pelvis abdomen obtained. Attention is directed to the breathing movement, gross body movement, amniotic fluid volume and tone. Findings: Amniotic fluid index 9.2 cm Total biophysical profile is 8 of 8. breathing movement is 2. Gross body movement is 2. tone is 2. Qualitative amniotic fluid volume is 2 Impression: Biophysical profile is 8 of 8.
== END 2025-01-25 21:35 | disposition home or self-care (01) ==
LOC: S4S1 18:55 → S4SX 18:57
PROVIDERS: Referring Provider Obstetrics & Gynecology; Visit Provider Obstetrics & Gynecology
DX: Z34.83 Encounter for supervision of other normal pregnancy, third trimester (principal); Z36.89 Encounter for other specified antenatal screening; Z3A.36 36 weeks gestation of pregnancy
CPT/HCPCS: 59025; 76819

== ENCOUNTER 2025-01-29 10:37 | Outpatient (RCR) | payer MEDICAID, SELFPAY ==
--- NOTE | 2025-01-08 11:10 | XR_ITS ---
Examination: Biophysical profile, ultrasound Date and time of exam: January 08, 2025 1129 hours INDICATIONS: Diagnosis gestational diabetes Technique: Multiple transabdominal sonographic images of the pelvis abdomen obtained. Attention is directed to the breathing movement, gross body movement, amniotic fluid volume and tone. Findings: Amniotic fluid index 13.9 cm Total biophysical profile is 8 of 8. breathing movement is 2. Gross body movement is 2. tone is 2. Qualitative amniotic fluid volume is 2 Impression: Biophysical profile is 8 of 8.
[2025-01-08 11:46] VITALS: BP 110/71; PULSE 99; RESP 16; TEMP 36.7
--- NOTE | 2025-01-15 10:44 | XR_ITS ---
Examination: Biophysical profile, ultrasound Date and time of exam: January 15, 2025 1118 hours INDICATIONS: Gestational diabetes Technique: Multiple transabdominal sonographic images of the pelvis abdomen obtained. Attention is directed to the breathing movement, gross body movement, amniotic fluid volume and tone. Findings: Amniotic fluid index 11.8 cm Total biophysical profile is 8 of 8. breathing movement is 2. Gross body movement is 2. tone is 2. Qualitative amniotic fluid volume is 2 Impression: Biophysical profile is 8 of 8.
[2025-01-15 11:36] VITALS: BP 103/61; PULSE 82; RESP 16; TEMP 36.7
--- NOTE | 2025-01-22 10:38 | XR_ITS ---
Examination: Biophysical profile, ultrasound Date and time of exam: November 2024 1053 hours INDICATIONS: Diagnosis gestational diabetes Technique: Multiple transabdominal sonographic images of the pelvis abdomen obtained. Attention is directed to the breathing movement, gross body movement, amniotic fluid volume and tone. Findings: Amniotic fluid index 7.7 cm Total biophysical profile is 8 of 8. breathing movement is 2. Gross body movement is 2. tone is 2. Qualitative amniotic fluid volume is 2 Impression: Biophysical profile is 8 of 8.
[2025-01-22 11:12] VITALS: BP 104/69; PULSE 85; RESP 16; TEMP 36.7
--- NOTE | 2025-01-29 10:43 | XR_ITS ---
Examination: Biophysical profile, ultrasound Date and time of exam: January 29, 2025, 1106 hours INDICATIONS: Diagnosis gestational diabetes. Technique: Multiple transabdominal sonographic images of the pelvis abdomen obtained. Attention is directed to the breathing movement, gross body movement, amniotic fluid volume and tone. Findings: Amniotic fluid index 8.5 cm Total biophysical profile is 8 of 8. breathing movement is 2. Gross body movement is 2. tone is 2. Qualitative amniotic fluid volume is 2 Impression: Biophysical profile is 8 of 8.
[2025-01-29 11:40] VITALS: BP 94/50; PULSE 88; RESP 16; TEMP 36.8
== END 2025-01-29 23:59 | disposition home or self-care (01) ==
LOC: S4S1 10:37
PROVIDERS: Obstetrics & Gynecology; PCP Physician Assistant; Referring Provider Advanced Practice Midwife; Visit Provider Advanced Practice Midwife
PROC: (CPT 59514; principal; 2025-02-05 12:30)
DX: O24.410 Gestational diabetes mellitus in pregnancy, diet controlled (principal); O34.219 Maternal care for unspecified type scar from previous cesarean delivery; O09.93 Supervision of high risk pregnancy, unspecified, third trimester; O09.523 Supervision of elderly multigravida, third trimester; Z3A.36 36 weeks gestation of pregnancy
CPT/HCPCS: 59025; 76819; A4314; A4649; J1100; J1885; J2210; J2274; J2405; J3010; J2270

== ENCOUNTER 2025-02-05 10:25 | Inpatient (IN) | payer MEDICAID, SELFPAY ==
[2025-02-05] VITALS (15 sets, daily range): BP systolic 92–117; BP diastolic 56–76; PULSE 67–95; RESP 15–19; TEMP 36.4–36.7; O2SAT 98–100; BMI 39.2
[2025-02-05 11:53] LABS: Basophils # (Auto) 0.0 Thou/mm3 (0.0-0.2); Basophils % (Auto) 0 % (0-2.5); Eosinophils # (Auto) 0.0 Thou/mm3 (0.0-0.5); Eosinophils % (Auto) 0 % (0-10); Hematocrit 34.5 % (36.0-46.0); Hemoglobin 11.6 g/dL (12.0-16.0); Immature Granulocytes Auto 0.03 Thou/mm3 (0.00-0.00); Lymphocytes # (Auto) 1.3 Thou/mm3 (1.0-4.8); Lymphocytes % (Auto) 16 % (10-50); Mean Corpuscular HGB Conc 33.6 g/dl (31.0-37.0); Mean Corpuscular Hemoglobin 29.9 pg (25.0-35.0); Mean Corpuscular Volume 89 fL (80-100); Monocytes # (Auto) 0.4 Thou/mm3 (0.0-0.8); Monocytes % (Auto) 5 % (0-12); Neutrophils # (Auto) 6.0 Thou/mm3 (1.8-7.7); Neutrophils % (Auto) 78 % (37-80); Nucleated Red Blood Cell # 0.00 Thou/mm3 (0.00-0.00); Nucleated Red Blood Cell % 0 /100 WBC (0); Platelet Count 244 Thou/mm3 (140-440); RDW Standard Deviation 49.8 fL (36.4-46.3); Red Blood Count 3.88 Miln/mm3 (4.00-5.20); White Blood Count 7.7 Thou/mm3 (3.6-11.0)
[2025-02-05] MEDS: ceFAZolin/D5W 2 GM IV 2 GM/100 ML BAG IV (12:19)
[2025-02-05 12:27] LABS: Syphilis Nonreactive (Nonreactive)
--- NOTE | 2025-02-05 12:28 | ESHP_ITS ---
Documentation for date of: 02/05/25 OB Labor/Induct. HPI History of Present Illness Chief complaint: scheduled section : 3 Para: 2 Term pregnancies: 2 pregnancies: 0 Living children: 2 History of Abortions: Spontaneous and Elective: 0 History of Vaginal deliveries: 0 History of sections: Yes (x2) History of : No JAI: 02/11/25 Gestational Age (weeks): 39 Gestational Age (days): 1 History of present illness: Patient presents for scheduled repeat low transverse section. Indication: history of 2 prior sections. No regular/painful ctx. No LOF. No vaginal bleeding. Normal movement. History of Present Dating criteria: LMP confirmed by 2nd trimester US Adequate Care: Yes Narrative: History of 2 uncomplicated sections at term. First was for what sounds like grade 3 placenta(?)- never labored. G3: current -Hx of 2 prior sections -Obesity (current BMI 39) -A2GDM well managed with metformin 500mg BID -AMA Labs Maternal Blood Type: O Pos Labs: Positive: RPR and Rubella Titre, Negative: Hepatitis B, HIV, Chlamydia, Gonorrhea and Group Beta Strep and Unknown: Herpes Type 1, Herpes Type 2 and Covid-19 Review of Systems Review of Systems Narrative Review of Systems: Review of Systems Systems Reviewed: All systems reviewed, normal except as documented Constitutional Constitutional: Denies body ache(s), Denies chills, Denies fever(s) and Denies headache(s) ENT Ears, Nose, Mouth, and Throat: Denies headache(s) and Denies vertigo Cardiovascular Cardiovascular: Denies chest pain, Denies palpitations, Denies dyspnea and Denies syncope Respiratory Respiratory: Denies cough, Denies dyspnea Gastrointestinal Gastrointestinal: Denies nausea and Denies vomiting Neurologic Neurologic: Denies convulsions, Denies headache(s), Denies other visual disturbances, Denies syncope and Denies vertigo Past Medical History Family History OTHER FAMILY HX: non-contributory Surgical History SURGICAL: Positive Section (x2) OTHER SURGICAL HX: denies any other Social History SOCIAL: No tobacco/ETOH/illicit drugs Past Medical History Comments PMH COMMENT: Obesity (BMI 39) Umbilical hernia Meds Home Medications and Allergies Allergies Allergy/AdvReac Type Severity Reaction Status Date / Time No Known Allergies Allergy Verified 01/25/25 21:10 OB Exam Physical Exam Vital signs: Temp Pulse Resp BP 98.1 F 95 18 117/76 02/05/25 10:48 02/05/25 10:48 02/05/25 10:48 02/05/25 10:48 Narrative: General: well developed, well nourished, no acute distress, conversant Cardiac: normal heart rate Lungs: breathing without distress Abdomen: soft, gravid, non-tender, no rebound or guarding Extremities: no pain with palpation of calves Detailed Labor and Delivery Exam Membranes: intact monitor accelerations: 15x15 monitor decelerations: None skilled nursing variability: Moderate (11-25) OB Results Labs 02/05/25 11:35 Labs: Short CBC 02/05/25 Range/Units 11:35 WBC 7.7 (3.6-11.0) Thou/mm3 Hgb 11.6 L (12.0-16.0) g/dL Hct 34.5 L (36.0-46.0) % Plt Count 244 (140-440) Thou/mm3 OB Assessment & Plan Assessment and Plan (1) Previous delivery affecting , antepartum: Status: Acute Assessment and plan: Giselle is a 35yo with SIUP at 39&1wk presenting for scheduled RLTCS. She has history of 2 prior sections. Vitals wnl, benign exam. Reassuring assessment. PMhx/ complicated by: -Hx of 2 prior sections -Obesity (current BMI 39) -A2GDM well managed with metformin 500mg BID -AMA Plan: -Admit to L&D -Establish IV, routine labs (including RPR with titer) -NPO -Counseled/consented re: section. Discussed all r/b/a to include: bleeding (possible need for blood transfusion), infection (subcutaneous, deeper layers or uterine with possible need for prolonged admission or re-admission for IV antibiotics, I&D with wound packing, etc), injury to nearby structures such as bladder, bowel, ureters, blood vessels, nerves with possible need for re- operation, pain, injury to baby, hysterectomy, DVT/PE, . Answered all questions to patient and their support person's satisfaction. -IV abx ppx: ancef 2g IV -Nursing and anesthesia team aware of plan for section. Will proceed to OR when team is ready (2) Advanced maternal age (AMA) in : Status: Acute (3) Diet controlled gestational diabetes mellitus (GDM), antepartum: Status: Acute (4) Encounter for supervision of high risk in third trimester, antepartum: Status: Acute
--- NOTE | 2025-02-05 14:30 | PC.NURSE ---
1430, PATIENT RESTING IN BED, ALERT AND ORIENTED X4, DENIES PAIN, SHE IS ABLE TO MOVE LOWER EXTREMITIES. FAMILY MEMBER CARING FOR BABY.
--- NOTE | 2025-02-05 14:32 | PD.GYNPROC ---
Operative Note - RADIO BROADCASTER Procedure Date of procedure: 02/05/25 Procedure Performed: Repeat Low Transverse Section Indication: Giselle is a 35yo with SIUP at 39w1d with history of prior section x2. Pre-Op diagnosis: SIUP at 39w1d History of prior section x2 A2GDM well controlled on metformin AMA Obesity Post-Op diagnosis: SIUP at 39w1d History of prior section x2 A2GDM well controlled on metformin AMA Obesity Anesthesia type: Spinal Fluids: crystalloid Fluid amount (mL): 1,000 Urine output (mL): 200 Specimen: other (placenta/cord ( mealy )- sent to pathology) Estimated blood loss (ml): 700 Findings: Male infant in cephalic presentation, apgars 9/9, weight 8lb2oz. TOB 1319. Normal appearing uterus, fallopian tubes and ovaries. Mealy residual pieces of placenta were carefully pealed away from the mucoca of the uterus. Complications: none Narrative: After obtaining informed consent via senior laboratory technician, the patient was taken to the operating room. There was reassuring heart rate tracing prior. Spinal anesthesia was administered. A tapia catheter was placed and bilateral sequential compression devices were placed. She was then prepped and draped in the normal sterile fashion in the dorsal supine position with left lateral tilt. A timeout was performed to confirm patient name, date of , procedure and indication. The team was in agreement. Spinal anesthesia was found to be adequate using an Allis clamp. Anceph 2g IV x1 were given for prophylaxis. A Pfannenstiel skin incision was then made with the scalpel and carried through to the underlying layer of fascia. The fascia was incised in the midine and the incision was extended laterally with the Villarreal scissors. The superior and inferior aspects of the fascial incision were then grasped with the Clif clamps, elevated and the underlying rectus muscles were dissected off bluntly and sharply. The peritoneum was entered digitally and the rectus muscles were then in the midline. The peritoneal incision was then extended superiorly and inferiorly with good visualization of the bladder. An Linwood retractor was placed. The lower uterine segment was scored in a transverse fashion with the scalpel. The uterus was then entered bluntly and the incision was extended with traction with clear amniotic fluid noted. The infant's head was elevated to the level of the incision. Fundal pressure was applied. The head was delivered atraumatically in the OA position. Infant had spontaneous cry at that point. One loose nuchal cord reduced. The anterior shoulder, posterior shoulder and corpus were delivered without difficulty. The nose and mouth were suctioned with bulb suction and cord was clamped x2 and cut. Infant was vigorous. The was handed off to the awaiting nursing team. Cord blood obtained for typing. The placenta was then removed with uterine massage and cord traction. The uterus was exteriorized and carefully cleared of all clot and debris (mealy residual pieces of placenta were carefully peeled away from mucosa of uterus). The uterine incision was repaired with 0-vicryl suture in a running locking fashion. A 2nd layer of O-monocryl suture was used to reinforce the hysterotomy incision in an imbricating fashion. The uterine incision was inspected and hemostasis was noted. In addition to standard IV pitocin, methergine 0.2mg IM x1 was given with good uterine tone achieved. The posterior cul-de-sac was suctioned and the uterus returned to the abdomen. The gutters were cleared of all clot. Linwood retractor was removed. The peritoneum was closed using a 3-0 vicryl suture in running fashion. The rectus muscles were inspected and small areas of oozing were cauterized. The fascia was reapproximated with 0-Vicryl suture in a running fashion. The subcutaneous tissue was then copiously irrigated. Malik's fascia was reapproximated in 2 layers using 3-0 vicryl suture in a running fashion. Skin was then repproximated by CUFF SETTER OVERLOCK with 4-0 monocryl suture in running subcuticular fashion. The incision was cleaned with a wet lap and dried with a dry lap. Dvfyuxjkb-ihmlycyawpk-ypcc bandage was applied overlying the incision and activated according to manager office services instructions. Fundus was firm at the umbilicus. Sponge, lap and needle counts were correct x2. The procedure was without complications and the patient tolerated the procedure well. She was taken to recover further on Labor and Delivery, in stable condition. Diagnosis Discharge Diagnosis (1) Previous delivery affecting , antepartum: Status: Acute (2) Advanced maternal age (AMA) in : Status: Acute (3) Diet controlled gestational diabetes mellitus (GDM), antepartum: Status: Acute (4) Encounter for supervision of high risk in third trimester, antepartum: Status: Acute (5) Obesity affecting in third trimester: Status: Acute Problem List Completed Was Problem List Reviewed/Reconciled?: Yes (5) Obesity affecting in third trimester Qualifiers: Obesity type affecting : unspecified obesity Qualified Code(s): O99.213 - Obesity complicating , third trimester
[2025-02-05] MEDS: OXYTOCIN in NS 20 units 20 UNIT/1,000 ML BAG 125 UNIT IV ×2 (15:39→23:50)
--- NOTE | 2025-02-05 19:17 | PC.NURSE ---
200 ML URINE OUTPUT FROM ALVAREZ CATHETER.
[2025-02-05] MEDS: DOCUSATE SOD 100 MG CAPSULE PO (20:18)
[2025-02-05] MEDS: KETOROLAC INJ 30 MG/ML VIAL IVP (23:52)
[2025-02-06 00:09] VITALS: BP 108/67; PULSE 80; RESP 17; TEMP 36.7; O2SAT 98
[2025-02-06 03:34] VITALS: BP 103/66; PULSE 93; RESP 18; TEMP 36.3; O2SAT 100
[2025-02-06 05:51] LABS: Basophils # (Auto) 0.0 Thou/mm3 (0.0-0.2); Basophils % (Auto) 0 % (0-2.5); Eosinophils # (Auto) 0.0 Thou/mm3 (0.0-0.5); Eosinophils % (Auto) 0 % (0-10); Hematocrit 26.4 % (36.0-46.0); Hemoglobin 9.1 g/dL (12.0-16.0); Immature Granulocytes Auto 0.08 Thou/mm3 (0.00-0.00); Lymphocytes # (Auto) 2.0 Thou/mm3 (1.0-4.8); Lymphocytes % (Auto) 12 % (10-50); Mean Corpuscular HGB Conc 34.5 g/dl (31.0-37.0); Mean Corpuscular Hemoglobin 29.8 pg (25.0-35.0); Mean Corpuscular Volume 87 fL (80-100); Monocytes # (Auto) 1.0 Thou/mm3 (0.0-0.8); Monocytes % (Auto) 6 % (0-12); Neutrophils # (Auto) 12.8 Thou/mm3 (1.8-7.7); Neutrophils % (Auto) 81 % (37-80); Nucleated Red Blood Cell # 0.00 Thou/mm3 (0.00-0.00); Nucleated Red Blood Cell % 0 /100 WBC (0); Platelet Count 197 Thou/mm3 (140-440); RDW Standard Deviation 48.8 fL (36.4-46.3); Red Blood Count 3.05 Miln/mm3 (4.00-5.20); White Blood Count 15.9 Thou/mm3 (3.6-11.0)
[2025-02-06] MEDS: KETOROLAC INJ 30 MG/ML VIAL IVP ×2 (07:18→13:27)
[2025-02-06 08:30] VITALS: BP 107/71; PULSE 84; RESP 16; TEMP 36.9
[2025-02-06] MEDS: DOCUSATE SOD 100 MG CAPSULE PO ×2 (08:58→21:19)
--- NOTE | 2025-02-06 10:57 | ESPR_ITS ---
Subjective Subjective Interval history: Patient doing well overall. Pain is controlled. She is ambulating no lightheadedness/dizziness. Has voiding spontaneously once since tapia was removed, no issues. Tolerating regular diet without nausea/vomiting. No fevers/chills, no CP/SOB. Exam Vital Signs Temp Pulse Resp BP Pulse Ox O2 Del Method 97.4 F 93 18 103/66 100 Room Air 02/06/25 03:34 02/06/25 03:34 02/06/25 03:34 02/06/25 03:34 02/06/25 03:34 02/06/25 03:34 Narrative Exam General: well developed, well nourished, no acute distress, conversant Cardiac: normal heart rate Lungs: breathing without distress Abdomen: soft, post-gravid, non-tender, no rebound or guarding, pfannenstiel incision covered by dry/clean/intact prineo bandage. Incision well reapproximated. No erythema, drainage or induration. Fundus firm at u-2cm. Extremities: no pain with palpation of calves, trace edema of BLE Objective Labs 02/06/25 04:40 Labs: Laboratory Results - last 24 hr 02/05/25 02/05/25 02/06/25 10:50 11:35 04:40 WBC 7.7 15.9 H D RBC 3.88 L 3.05 L Hgb 11.6 L 9.1 L D Hct 34.5 L 26.4 L MCV 89 87 MCH 29.9 29.8 MCHC 33.6 34.5 RDW Std Deviation 49.8 H 48.8 H Plt Count 244 197 D Neut % (Auto) 78 81 H Lymph % (Auto) 16 12 [place] % (Auto) 5 6 Eos % (Auto) 0 0 Baso % (Auto) 0 0 Neut # (Auto) 6.0 12.8 H Lymph # (Auto) 1.3 2.0 [place] # (Auto) 0.4 1.0 H Eos # (Auto) 0.0 0.0 Baso # (Auto) 0.0 0.0 Immature Gran # (Auto) 0.03 H 0.08 H Absolute Nucleated RBC 0.00 0.00 Immature Gran % 0 1 H Nucleated RBC % 0 0 Syphilis Serology Nonreactive Blood Type O Positive Antibody Screen NEGATIVE Blood Bank Wristband ID Yes Assessment & Plan Problem List (1) Previous delivery affecting , antepartum: Status: Acute Assessment and plan: Giselle is a 35yo [id number] s/p uncomplicated RLTCS (x3) at 1319 on 02/05/25, doing well on POD 1. Vitals wnl, benign exam. Hemodynamically stable with no evidence of infection. Appropriate change in H/H from 11.6 to 9.1. complicated by: History of prior section x2 A2GDM well controlled on metformin AMA Obesity (BMI 39 currently) Plan: -Continue routine /post-op care -Due to void now met -Regular diet -Motrin 800mg PO Q8hr, norco 5/325mg PO Q6hr prn pain -Encourage ambulation and use of IS -Anticipate discharge home tomorrow if meeting all milestones (2) Advanced maternal age (AMA) in : Status: Acute (3) Diet controlled gestational diabetes mellitus (GDM), antepartum: Status: Acute (4) Encounter for supervision of high risk in third trimester, antepartum: Status: Acute (5) Obesity affecting in third trimester: Status: Acute Time Spent With Patient Time: Total time spent is greater than 50% in coordination of care (as documented) at patient's floor/unit and/or counseling patient:
[2025-02-06 12:00] VITALS: BP 104/67; PULSE 75; RESP 17; TEMP 37
[2025-02-06 19:34] VITALS: BP 94/57; PULSE 88; RESP 17; TEMP 36.6; O2SAT 100
[2025-02-06] MEDS: IBUPROFEN TAB 400 MG TABLET 800 MG PO (21:19)
[2025-02-07 03:47] VITALS: BP 101/67; PULSE 81; RESP 18; TEMP 36.4; O2SAT 99
[2025-02-07 05:19] LABS: Collection Type, Urine Catheter; Squamous Epithelial Cell,Urine 0 /hpf (0-5)
[2025-02-07 05:22] LABS: Bilirubin,Urine Negative (Negative); Blood,Urine Negative (Negative); Clarity,Urine Clear (Clear/Hazy); Color,Urine Colorless (Lt Yel-Yel); Glucose, Urine Negative (Negative); Ketones,Urine Negative (Negative); Leukocyte Esterase,Urine Negative (Negative); Nitrite,Urine Negative (Negative); PH,Urine 6.0 (5.0-7.0); Protein,Urine Negative (Neg - Trace); RBC,Urine < 1 /hpf (0-3); Specific Gravity,Urine 1.005 (1.001-1.035); Urobilinogen,Urine Negative mg/dL (0.0-1.0); WBC,Urine < 1 /hpf (0-5)
[2025-02-07 08:15] VITALS: BP 121/66; PULSE 88; RESP 18; TEMP 36.8; O2SAT 100
[2025-02-07] MEDS: DOCUSATE SOD 100 MG CAPSULE PO (09:08)
--- NOTE | 2025-02-07 13:08 | ESPR_ITS ---
Subjective Subjective Interval history: The patient is a 35-year-old G3 now P3003 status post repeat #3 on 02/05/[address] Lima at term. Patient is resting comfortably this morning in a chair. She is breast and bottlefeeding. Her pain is controlled. She denies heavy bleeding cramps she denies fevers or chills. She would like to go home. Exam Vital Signs Temp Pulse Resp BP Pulse Ox O2 Del Method 98.3 F 88 18 121/66 100 Room Air 02/07/25 08:15 02/07/25 08:15 02/07/25 08:15 02/07/25 08:15 02/07/25 08:15 02/07/25 08:15 Narrative Exam Patient is a pleasant female. She is [place] Ze[place]ander-speaking only. The entire physical exam and interview is conducted at bedside with her nurse translating Constitutional Comments: The patient is alert and oriented x 3 in no apparent distress. She is pleasant. Abdomen is soft nontender fundus is at umbilicus. She has a prior scar that is vertical. Her new incision is low-transverse. It is clean dry and intact. Extremities show no significant edema or erythema. Objective Labs 02/06/25 04:40 Labs: Laboratory Results - last 24 hr 02/07/25 04:15 Ur Collection Type Catheter Urine Color Colorless A Urine Clarity Clear Urine pH 6.0 Ur Specific [place] 1.005 Urine Protein Negative Urine Glucose (UA) Negative Urine Ketones Negative Urine Blood Negative Urine Nitrite Negative Urine Bilirubin Negative Urine Urobilinogen (Auto) Negative Ur Leukocyte Esterase Negative Urine RBC < 1 Urine WBC < 1 Ur Squamous Epith Cells 0 Urine Bacteria None Assessment & Plan Problem List (1) Advanced maternal age (AMA) in : Status: Acute (2) Diet controlled gestational diabetes mellitus (GDM), antepartum: Status: Acute Assessment and plan: Patient will continue on her metformin and continue to check her blood sugars. (3) Obesity affecting in third trimester: Status: Acute (4) Delivery by section of full-term infant: Status: Acute Assessment and plan: Discharge instructions given including no heavy lifting, tampons, douching, or exercise x 6 weeks. Follow-up in [address] Acosta. Time Spent With Patient Time: Total time spent is greater than 50% in coordination of care (as documented) at patient's floor/unit and/or counseling patient: Time with patient: less than 15 minutes
--- NOTE | 2025-02-07 13:12 | ESDS_ITS ---
DS: Providers Provider Date of admission: 02/05/25 10:25 Primary care physician: Physician No Primary/Family Admitting Provider: Zandra Lima MD Attending Provider on Admission: Zandra Lima MD Consults: 02/05/25 14:14 Referral Routine Comment: Attending Provider on DC: Anabel Patel MD ([facility]) Discharging Provider: Anabel Patel MD ([facility]) Anticipated date of discharge: 02/07/25 DS: Diagnosis Discharge Diagnosis (1) Delivery by section of full-term : Status: Acute (2) Obesity affecting in third trimester: Status: Acute (3) Diet controlled gestational diabetes mellitus (GDM), antepartum: Status: Acute (4) Advanced maternal age (AMA) in : Status: Acute Problem List Completed Was Problem List Reviewed/Reconciled?: Yes Summary/Hosp Course Brief History: The patient is a 35-year-old -0-0-2 who presented for scheduled repeat low transverse section. Indication: history of 2 prior sections. No regular/painful ctx. No LOF. No vaginal bleeding. Normal movement. All care was through Dr. Acosta. She was admitted by Dr. Lima 02/05/2025. Please see history and physical for further details. The patient underwent an uncomplicated on 02/05/[address] Lima. Please see op report for further details. No tubal ligation was done. Patient did have a Pfannenstiel skin incision this time after having 2 vertical incisions on the skin during her last 2 C-sections. Patient had an uncomplicated course and was discharged home day #2 in stable condition. Peripartum Data Delivery Method: Low Transverse Episiotomy Description: None complications: none Status at Discharge Functional status at discharge: independent ambulation Overall status at discharge: patient is progressing back to baseline Time Spent with Patient Time attestation: Total time spent providing and/or coordinating discharge services: Time spent: Less than 30 minutes Specific discharge activities: No heavy lifting, heavy exercise, tampons, douching, swimming pools, bath tubs x 6 weeks. Follow-up with Dr. Acosta in 1 to 2 weeks. Exam Vital Signs Temp Pulse Resp BP Pulse Ox O2 Del Method 98.3 F 88 18 121/66 100 Room Air 02/07/25 08:15 02/07/25 08:15 02/07/25 08:15 02/07/25 08:15 02/07/25 08:15 02/07/25 08:15 Narrative Exam Patient is alert and oriented x 3 in no apparent distress Constitutional Comments: Fundus is firm, nontender. Incision is clean dry and intact. Extremities show no significant edema or erythema. Discharge Plan Plan Patient Disposition: HOME (Self Care) Disposition Comment: Stable Patient condition on transfer: Stable Prescriptions/Referrals Prescriptions/Med Rec: New hydrocodone-acetaminophen 5-325 mg Tablet 1 tab PO Q6H MDD 4 tablets PRN (Reason: Patient rated pain 7 to 8) 10 Days Qty: 12 0RF docusate sodium 100 mg Capsule 100 mg PO BID 10 Days Qty: 20 0RF ibuprofen 800 mg tablet 800 mg PO Q8HR PRN (Reason: Abdominal Pain) 10 Days Qty: 30 0RF Continued Vitamin Plus Low Iron 27 mg iron- 1 mg tablet 1 tab PO QDAY 90 Days Qty: 90 6RF Discontinued metformin 500 mg tablet 500 mg PO QDAY 90 Days Qty: 90 3RF No Action (DME) lancets Misc See Rx Instructions miscellaneous .MEDSUPPLY Qty: 100 0RF Rx Instructions: As directed (DME) Blood Glucose Test Strip See Rx Instructions .MEDSUPPLY Qty: 100 0RF Rx Instructions: As directed, 4 times a day Referrals: No Primary/Family,Physician [Primary Care Provider] - Patient/Caregiver Discharge Instructions Discharge Activity: activity as tolerated and other Other Discharge Activity Instructions:: vaginal rest and no heavy lifting more than 10 pounds for 6 weeks. keep incision clean and dry, do not submerge. do not drive while taking narcotic. Descanzo vaginal, no levantar nada mas de 10 libras por 6 semanas, mantener incision limpia y seca no sumergirse en el agua, no manejar cunado alicia tomando ajcky medicamentos (narcoticos) Other Discharge Diet Instructions: diabetic diet Education Materials: How to Breastfeed, After a , Nutrition While , Print Language: Italian Activity Restrictions/Additional Instructions: follow up with Dr. Acosta in 1 week for incision check, call clinic to schedule appointment Stand Alone Forms: Kianna Award Info., Patient Portal Info Letter Discharge Order Discharge Orders: Discharge (Routine); Ordered 02/07/25 Ordered By: Anabel Patel ([facility]) Planned Discharge Date 02/07/25 (2) Obesity affecting in third trimester Qualifiers: Obesity type affecting : unspecified obesity Qualified Code(s): O99.213 - Obesity complicating , third trimester
== END 2025-02-07 14:42 | disposition home or self-care (01) | DRG 540 ==
LOC: S4SX 10:28 → S4NX 12:57
PROVIDERS: Admitting Provider Obstetrics & Gynecology; Visit Provider Obstetrics & Gynecology
DX: O34.211 Maternal care for low transverse scar from previous cesarean delivery (principal); Z37.0 Single live birth; Z3A.39 39 weeks gestation of pregnancy; O24.425 Gestational diabetes mellitus in childbirth, controlled by oral hypoglycemic drugs; O99.214 Obesity complicating childbirth
CPT/HCPCS: 36415; 59409; 81001; 85025; 86780; 86850; 86900; 86901; 94762; A4314; A4649; J0689; J1100; J1885; J2210; J2274; J2405; J2590; J3010; A9270; J2270

== ENCOUNTER 2025-02-19 15:22 | Outpatient (AMB) | payer MEDICAID, SELFPAY ==
[2025-02-19 15:40] VITALS: BP 112/71; PULSE 78; RESP 17; TEMP 36.8; O2SAT 98
--- NOTE | 2025-02-19 15:40 | AMB.OBPP ---
Vital Signs 02/19/25 15:40 Weight 95.311 kg Weight Measurement Method Standing Scale BP 112/71 Blood Pressure Source Automatic Cuff Blood Pressure Location Right Upper Arm Position Sitting Respiration 17 Pulse 78 Pulse Source Monitor Temp 98.3 F Temp Source Temporal Artery Scan Pulse Oximetry (%) 98 Oxygen Delivery Method Room Air Allergies/Home Meds Allergies & Medications Allergies No Known Allergies Allergy (Verified 03/06/25 13:04) Intake Visit Data Collection New Patient or Established: Established Patient (seen at [facility] within 3 years) Reason for Visit:: OBC Consent obtained for Telemed Visit: No Seen by Clinical Staff ONLY (RN/MA): No Loan Representative Required: No Do You Feel Safe at Home: Yes Authorities Contacted: N/A PCP or OBGYN visit in last 3 months: Yes Date of Last PCP or OBGYN visit: 02/07/25 Hx Now: Yes Are you currently on any form of Control: No Pain Present Currently: No Pain Scale Used: Gonsalves-Betancourt/Numerical Pain scale:: 0 Smoking Status Smoking Status: Never smoker SCALE ATTENDANT: Past Medical History Past Medical History: No Hx Neurological Disorders, No Hx Cardiac Disorders, No Hx Cancer, No Hx Blood Disorders, No Hx Gastrointestinal Disorders, No Hx Renal Disease, No Hx Diabetes Mellitus Type 1 and No Hx Diabetes Mellitus Type 2 Questionnaires Covid-19 Vaccine Questionnaire Has patient been vacinated for Covid-19 Have you been vacinated for Covid-19: No Social History Living Situation History Lives With: Family Housing: House Tobacco History Smoking Status: Never smoker Second Hand Smoke Exposure: No Alcohol History Alcohol Intake: Never Domestic Abuse History Do You Feel Safe at Home: Yes Care OB Visit Log OB Flowsheet Initial Weight: Not Recorded Date <del>?</del> EGA Weight BP Alb Glu CTX Pres Fundal ht FHR Mov Dilation Station Effacement Hx Notes Visit Note 12/25/24 <del>?</del> 33w 1d 101.264 kg 114/72 absent unknown 32 146 active 34-year-old 3 para 2. x 2. GDM with this . Patient reports compliance with GDM diet and she is taking metformin 500 twice daily. I reviewed sugar log and patient's sugars are at goal 100%. Patient reports movement. Denies labor contractions. Denies leaking or bleeding. Tdap today. Increase fluids. Continue prenatals and iron. Increase fluids and walk twice a day reviewed labs and chart with patient today. Continue GDM diet. Continue to log blood sugars 4 times a day. Schedule patient with maternal- medicine for consult and scan. Tdap today. Increase fluids. Continue prenatals and iron. Increase fluids and walk twice a day reviewed labs and chart with patient today. Continue GDM diet. Continue to log blood sugars 4 times a day. Schedule patient with maternal- medicine for consult and scan. start week NST/BPP ordered 01/10/25 <del>?</del> 35w 3d 101.321 kg 101/68 34 157 active No complaints, reports good movement. heart rate 157 bpm. Plan is to schedule around 01/28, ultrasound to be done next week, continue metformin 500mg twice daily, monitor blood glucose levels, follow up in 1 week, and address umbilical hernia after delivery. 01/14/25 <del>?</del> 36w 0d 101.831 kg 100/68 occasional unknown 36 155 active , at 36 weeks gestation presenting for routine care.Gestational diabetes, managed with metformin 500mg BID - Two previous sections - Advanced maternal age - Scheduled for repeat section on January 31, 2025 Plan - Repeat scheduled for January 31, 2025 - Continue metformin 500mg BID for gestational diabetes - Return for follow-up appointment in one week - Monitor movement and report if contractions become painful or occur every 5 minutes - Continue checking blood sugar levels, report if readings exceed 150 - Arrive at hospital at 10:00 AM on the day of scheduled 01/21/25 <del>?</del> 37w 0d 102.569 kg 120/72 occasional cephalic 37 145 active No CTX/LOF/VB, reports good FM. FHR 140. GDM on metformin with reviewed logs: fasting 78?94, 1hr PP mostly 108 with one 134. Reports occasional painless uterine tightening. Repeat scheduled for 01/31. Plan: stop glucose logs, continue metformin/diet, NPO after midnight before surgery (including meds), check in 10 AM on 01/31. Return if CTX q5min, LOF, VB, or ?FM. [facility] Calculator Estimated Delivery Date Method Current WG Current Estimate 02/11/25 Ultrasound #1 43w 2d Other Estimates 02/21/25 LMP (Certain) 41w 6d 02/05/25 Ultrasound #2 44w 1d Specific Issue/Plans Laboratory, Imaging, and Diagnostic Test Results - Date: 08/02/2024 - Blood group: O-positive - Rubella: Immune - RPR: Non-reactive - Hepatitis B: Negative - HIV: Negative - Gonorrhea: Negative - Chlamydia: Negative - One-hour glucose: 175 - Hemoglobin A1c: 5.4 - Cystic fibrosis screening: Negative - NIPT: Negative - Ultrasound (08/30/2024): Gestational age 16 weeks and 3 days, [facility] 02/11/2025 - Ultrasound (10/30/2024): Gestational age 26 weeks, [facility] 02/05/2025 Notes Visit Date: 12/25/24 Last Updated by: Lindy Muniz CNM 34 yo . C/Sx2, lmp: 05/17/24. EDC 02/21/25. sono 08/30/24: 16w3. EDC: 02/11/25. 2n sono: 10/30/24: 26w. EDC 02/05/25. 1hr gtt: 175, 3 hr gtt abnormal. O+,abs-, rpr;;nr, rub imm, hbsag-,hiv-,HC-, GC/CT-, NIPT/AFP and carrier screen- HPI Interval History: Patient presents for a postoperative visit following a repeat performed on February 05, 2025, making her approximately 2 weeks . The incision site was examined during the visit. She was asked about her feeding method for the , to which she responded, but the specific method was not clearly stated. The patient confirmed that her baby is doing well. She was instructed to continue wearing a postoperative belt until one month post-surgery, with guidance provided on how to wash and reapply it. It was noted that the current belt appeared to be too small for the patient, and a prescription for a larger size was offered. 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 No specific postoperative complications or concerns were mentioned by the patient during this visit. She is a female patient with an obstetric history of G2 T2 L2, currently 2 weeks . Her most recent delivery was a repeat on February 05, 2025. Exam Narrative Physical exam: - Abdomen: incision site examined. Incision appears to be healing well. General General Appearance: alert, in no apparent distress and healthy appearing Head Head exam: atraumatic Neck Neck exam: Present normal inspection and trachea midline Chest Chest inspection: Present normal inspection and symmetric chest wall rise External exam: Present normal external exam; Absent tenderness Neuro Neurological exam: Present oriented X3 Psych Psychiatric exam: Present normal affect and normal mood Office Procedures [facility] Clinic LOC & Office Proc's Nursing/Assessment Patient Status: Established Patient [facility] Nursing Assessment: Medication Reconciliation, Update PMH in EMR and Vital Signs [facility] Clinic Coordination of Care: Complex Care and Chronic Disease 1-5, Consent,records obtained, informed consent, Education Simp Pt/Fam and 4+ Authorizations needed Special Needs: Heart tones Established Patient Charge Established Patient Point Assignment: 130 Established Patient Point Charge: EP Level 4 (120-155) Assessment & Plan Diagnosis / Problem List (1) Delivery by section of full-term : Status: Acute Plan Status post repeat section: - Incision site healing well. - Postoperative abdominal binder too small for current size. Plan: - Continue wearing abdominal binder until 1 month postoperative. - Prescription for larger abdominal binder to be filled at pharmacy (e.g., [facility] or [facility]). - Follow-up appointment scheduled in 1 month.
== END 2025-02-19 16:15 | disposition home or self-care (01) ==
LOC: HODSOBC 15:22
PROVIDERS: Supervising Provider Obstetrics & Gynecology; Visit Provider Obstetrics & Gynecology
DX: Z39.2 Encounter for routine postpartum follow-up (principal)
CPT/HCPCS: 99214; G0463

== ENCOUNTER 2025-03-06 12:58 | Outpatient (AMB) | payer MEDICAID, SELFPAY ==
[2025-03-06 13:04] VITALS: BP 114/76; PULSE 79; RESP 17; TEMP 36.8; O2SAT 98; BMI 41.0
--- NOTE | 2025-03-06 13:04 | AMBOBPPN_ITS ---
Vital Signs 03/06/25 13:04 Height 1.52 m Height Method Measured Weight 95.311 kg Weight Measurement Method Standing Scale BMI 41.0 BP 114/76 Blood Pressure Source Automatic Cuff Blood Pressure Location Right Upper Arm Position Sitting Respiration 17 Pulse 79 Pulse Source Monitor Temp 98.2 F Temp Source Temporal Artery Scan Pulse Oximetry (%) 98 Oxygen Delivery Method Room Air Allergies/Home Meds Allergies & Medications Allergies No Known Allergies Allergy (Verified 03/06/25 13:04) Medication Reconciliation blood sugar diagnostic (Blood Glucose Test strips) #100 ea 01/10/25 [Rx Con firmed 03/06/25] lancets #100 ea 01/10/25 [Rx Confirmed 03/06/25] vitamins with calcium no.72-iron 27 mg-folic acid 1 mg tablet ( Vitamins Plus Low Iron) 1 tab PO QDAY 90 days #90 tabs 01/10/25 [Rx Confirmed 03/06/25] miscellaneous medical supply #1 ea 02/19/25 [Rx Confirmed 03/06/25] Intake Visit Data Collection New Patient or Established: Established Patient (seen at [facility] within 3 years) Reason for Visit:: FOLLOW UP Consent obtained for Telemed Visit: No Seen by Clinical Staff ONLY (RN/MA): No Director Of Home Care Hospice Required: Yes Director Of Home Care Hospice's name/title: RONI BABIN Do You Feel Safe at Home: Yes Authorities Contacted: N/A PCP or OBGYN visit in last 3 months: Yes Date of Last PCP or OBGYN visit: 02/19/25 Hx Now: No Are you currently on any form of Control: No Pain Present Currently: Yes Pain scale:: 5 Smoking Status Smoking Status: Never smoker [employer]: Past Medical History Past Medical History: No Hx Neurological Disorders, No Hx Cardiac Disorders, No Hx Cancer, No Hx Blood Disorders, No Hx Gastrointestinal Disorders, No Hx Renal Disease, No Hx Diabetes Mellitus Type 1 and No Hx Diabetes Mellitus Type 2 Questionnaires Covid-19 Vaccine Questionnaire Has patient been vacinated for Covid-19 Have you been vacinated for Covid-19: No Social History Living Situation History Lives With: Family Housing: House Tobacco History Smoking Status: Never smoker Second Hand Smoke Exposure: No Alcohol History Alcohol Intake: Never Domestic Abuse History Do You Feel Safe at Home: Yes EPDS - PP Depression Screening [place] Pospartum Depression Screen I have been able to laugh and see the funny side of things: (0) As much as I always could I have looked forward with enjoyment to things: (0) As much as I ever did I have blamed myself unnecessarily when things went wrong: (0) No, never I have been anxious or worried for no good reason: (0) No, not at all I have felt scared or panicky for no very good reason: (0) No, not at all Things have been getting on top of me: (0) No, I have been coping as well as ever I have been so unhappy that I have had difficulty sleeping: (0) No, not at all I have felt sad or miserable: (0) No, not at all I have been so unhappy that I have been crying: (0) No, never The thought of harming myself has occurred to me: (0) Never Care OB Visit Log OB Flowsheet Initial Weight: Not Recorded Date -?-?-?-?-?-?-?-?-?-?-?-?- EGA Weight BP Alb Glu CTX Pres Fundal ht FHR Mov Dilation Station Effacement Hx Notes Visit Note 12/25/24 -?-?-?-?-?-?-?-?-?-?-?-?- 33w 1d 101.264 kg 114/72 absent unknown 32 146 active 34-year-old 3 para 2. x 2. GDM with this . Patient reports compliance with GDM diet and she is taking metformin 500 twice daily. I reviewed sugar log and patient's sugars are at goal 100%. Patient reports movement. Denies labor contractions. Denies leaking or bleeding. Tdap today. Increase fluids. Continue prenatals and iron. Increase fluids and walk twice a day reviewed labs and chart with patient today. Continue GDM diet. Continue to log blood sugars 4 times a day. Schedule patient with maternal- medicine for consult and scan. Tdap today. Increase fluids . Continue prenatals and iron. Increase fluids and walk twice a day reviewed labs and chart with patient today. Continue GDM diet. Continue to log blood sugars 4 times a day. Schedule patient with maternal- medicine for consult and scan. start week NST/BPP ordered 01/10/25 -?-?-?-?-?-?-?-?-?-?-?-?- 35w 3d 101.321 kg 101/68 34 157 active No complaints, reports good movement. heart rate 157 bpm. Plan is to schedule around 01/28, ultrasound to be done next week, continue metformin 500mg twice daily, monitor blood glucose levels, follow up in 1 week, and address umbilical hernia after delivery. 01/14/25 -?-?-?-?-?-?-?-?-?-?-?-?- 36w 0d 101.831 kg 100/68 occasional unknown 36 155 active , at 36 weeks gestation presenting for routine care.Gestational diabetes, managed with metformin 500mg BID - Two previous sections - Advanced maternal age - Scheduled for repeat section on January 31, 2025 Plan - Repeat scheduled for January - Continue metformin 500mg BID for gesta tional diabetes - Return for follow-up appointment in on e week - Monitor movement and report if c ontractions become painful or occur every 5 minutes - Continue checking blood sugar levels, report if readings exceed 150 - Arrive at hospital at 10:00 AM on the day of scheduled 01/21/25 -?-?-?-?-?-?-?-?-?-?-?-?- 37w 0d 102.569 kg 120/72 occasional cephalic 37 145 active No CTX/LOF/VB, reports good FM. FHR 140. GDM on metformin with reviewed logs: fasting 78?94, 1hr PP mostly 108 with one 134. Reports occasional painless uterine tightening. Repeat scheduled for 01/31. Plan: stop glucose logs, continue metformin/diet, NPO after midnight before surgery (including meds), check in 10 AM on 01/31. Return if CTX q5min, LOF, VB, or ?FM. [facility] Calculator Estimated Delivery Date Method Current WG Current Estimate 02/11/25 Ultrasound #1 43w 3d Other Estimates 02/21/25 LMP (Certain) 42w 0d 02/05/25 Ultrasound #2 44w 2d Specific Issue/Plans Laboratory, Imaging, and Diagnostic Test Results - Date: 08/02/2024 - Blood group: O-positive - Rubella: Immune - RPR: Non-reactive - Hepatitis B: Negative - HIV: Negative - Gonorrhea: Negative - Chlamydia: Negative - One-hour glucose: 175 - Hemoglobin A1c: 5.4 - Cystic fibrosis screening: Negative - NIPT: Negative - Ultrasound (08/30/2024): Gestational age 16 weeks and 3 days, [facility] 02/11/2025 - Ultrasound (10/30/2024): Gestational age 26 weeks, [facility] 02/05/2025 Notes Visit Date: 12/25/24 Last Updated by: Lindy Muniz, SHIRA 34 yo . C/Sx2, lmp: 05/17/24. EDC 02/21/25. sono 08/30/24: 16w3. EDC: 02/11/25. 2n sono: 10/30/24: 26w. EDC 02/05/25. 1hr gtt: 175, 3 hr gtt abnormal. O+,abs-, rpr;;nr, rub imm, hbsag-,hiv-,HC-, GC/CT-, NIPT/AFP and carrier screen- HPI Interval History: Giselle Diaz presents with concerns regarding her section incision one month post-delivery. She reports no pain, discharge, fever, or chills associated with the incision site. The patient has noticed that the scar tissue appears thi ck, which she attributes to multiple previous sections. She mentions feeling knots at the incision site, which she believes to be stitch material. The patient inquires about resuming Ozempic, which she was not taking prior to . She also mentions a history of gestational diabetes during her recent . She has a history of delivery approximately one month ago. The patient is a 35-year-old female with an obstetric history of G1 T1 L1. ROS: Negative except as stated above, limited to [employer] and pertinent complaints. Exam Narrative Physical exam: - Abdominal: incision site examined. Scar tissue noted at incision site. Palpable knots felt, likely stitch material. No signs of laceration, pus, or blood observed at the incision site. General General Appearance: alert, in no apparent distress and healthy appearing Head Head exam: atraumatic Neck Neck exam: Present normal inspection and trachea midline Chest Chest inspection: Present normal inspection and symmetric chest wall rise External exam: Present normal external exam; Absent tenderness Neuro Neurological exam: Present oriented X3 Psych Psychiatric exam: Present normal affect and normal mood Office Procedures OB Clinic LOC & Office Proc's Nursing/Assessment Patient Status: Established Patient OB Clinic Nursing Assessment: Medication Reconciliation, Update PMH in EMR and Vital Signs OB Clinic Coordination of Care: Complex Care and Chronic Disease 1-5, 4+ Authorizations needed, Lab and Imaging orders and Results/Orders obtained Established Patient Charge Established Patient Point Assignment: 100 Post Follow-up Visit Post Follow up Visit: Yes Assessment & Plan Diagnosis / Problem List (1) Delivery by section of full-term infant: Status: Acute (2) Obesity affecting in third trimester: Status: Acute Qualifiers: Obesity type affecting : unspecified obesity Qualified Code(s): O99.213 - Obesity complicating , third trimester Plan Post- section incision concern: - One month post-operative with incision site showing multiple cuts and thickened skin with scar tissue formation. - Palpable knots at incision site identified as dissolving stitch material. - No signs of infection present - no discharge or systemic symptoms. Plan: - Apply warm compress to incision site once daily before sleep to aid in stitch dissolution. - Wear elastic abdominal binder for compression. - Follow up in one month for reassessment. Gestational diabetes follow-up: - History of gestational diabetes during without pre- medication. - Current diabetes status requires assessment. Plan: - Repeat diabetes test in 2 months post-. - Perform lab work at next visit in one month.
== END 2025-03-06 13:13 | disposition home or self-care (01) ==
LOC: HODSOBC 12:58
PROVIDERS: Supervising Provider Obstetrics & Gynecology; Visit Provider Obstetrics & Gynecology
DX: Z39.2 Encounter for routine postpartum follow-up (principal); O99.215 Obesity complicating the puerperium; O24.439 Gestational diabetes mellitus in the puerperium, unspecified control
CPT/HCPCS: Z1038